=== PATIENT | male | born 1970 | race Caucasian/White ===

== ENCOUNTER 2018-06-30 12:56 | Emergency (ER) | payer MEDICAID ==
[~2018-06-30] VITALS: Ht 190.5 cm; Wt 90.9 kg
[2018-06-30 12:58] VITALS: BP 141/90; Ht 190.5 cm; Wt 90.9 kg
[2018-06-30] MEDS ORDERED: ZOLOFT100 MG PO (13:00)
[2018-06-30] MEDS ORDERED: VOLTAREN75 MG PO (14:20)
== END 2018-06-30 15:08 | disposition home or self-care (01) ==
LOC: D.ER 12:56
DX: M79.672 Pain in left foot (principal); M77.51 Other enthesopathy of right foot and ankle

== ENCOUNTER 2018-08-22 14:02 | Emergency (ER) | payer MEDICAID ==
[~2018-08-22] VITALS: Ht 190.5 cm; Wt 90.7 kg
[~2018-08-22 14:02] MED LIST: VOLTAREN75 MG PO; ZOLOFT100 MG PO
[2018-08-22 14:32] VITALS: Ht 190.5 cm; Wt 90.7 kg
[2018-08-22 15:01] VITALS: BP 134/83
== END 2018-08-22 15:06 | disposition home or self-care (01) ==
LOC: D.ER 14:02
DX: S01.01XD Laceration without foreign body of scalp, subsequent encounter (principal); X58.XXXD Exposure to other specified factors, subsequent encounter; Z48.02 Encounter for removal of sutures

== ENCOUNTER 2018-09-06 10:54 | Inpatient (IN) | payer MEDICAID ==
[~2018-09-06] VITALS: Ht 190.5 cm; Wt 92.7 kg
--- NOTE | 2018-09-06 11:32 | NUR ---
PT OBSERVED USING CHEWING TOBACCO AND STATES HE IS FEELING ANXIOUS. PT MADE TO SPIT OUT CHEWING TOBACCO, COMPLIED WITH REQUEST. EDUCATED PT THAT TOBACCO IS A STIMULANT, POSSIBLY CONTRIBUTING TO HIS ANXIETY. TOBACCO PRODUCT OUT OF REACH OF PT AT NURSES STATION FOR SAFE KEEPING.
[2018-09-06 11:54] LABS: BASOPHILS 0.4 % (0-2); EOSINOPHILS 0.2 % (0-7); HEMOGLOBIN 16.1 g/dL (13.5-17.5); LYMPHOCYTES 41.6 % (15-50); MCH 32.2 pg (26.0-34.0); MCHC 35.8 g/dL (31.0-37.0); MEAN PLATELET VOLUME 9.7 fL (7.4-10.4); MONOCYTES 5.4 % (2-11); NEUTROPHILS 52.4 % (40-80); PLATELET COUNT 216 10x3/uL (130-400); RDW 12.1 % (11.5-14.5); WBC 4.6 10x3/uL (4.8-10.8)
--- NOTE | 2018-09-06 11:55 | NUR ---
PT OBSERVED LYING IN BED. PT STILL COMPLAINING OF N/V FOLLOWING [facility]. TREATING PROVIDER NOTIFIED. RESP EVEN AND UNLABORED. AWAITING ARRIVAL OF ORDERED IV FLUIDS FROM PHARMACY. PT AWARE URINE SPEC NEEDED. URINAL PROVIDED. CALL LIGHT IN REACH. WILL CONT TO MONITOR.
[2018-09-06 12:11] LABS: ALKALINE PHOSPHATASE 77 U/L (46-116); ALT (SGPT) 78 U/L (10-68); BILIRUBIN - TOTAL 0.77 mg/dL (0.2-1.3); CALC OSMOLALITY 279 mosm/kg (275-300); CALCIUM 8.4 mg/dL (8.5-10.1); CARBON DIOXIDE 27.2 mmol/L (21.0-32.0); CHLORIDE - SERUM 101 mmol/L (98-107); CREATININE - SERUM 0.7 mg/dL (0.6-1.3); GLUCOSE 116 mg/dL (74-106); POTASSIUM - SERUM 3.9 mmol/L (3.5-5.1); PROTEIN - SERUM 7.6 g/dL (6.4-8.2); SODIUM 141 mmol/L (136-145); UREA NITROGEN 8 mg/dL (7-18); eGFR NON AFRICAN AMERICAN > 90 mL/min (90-120)
--- NOTE | 2018-09-06 12:28 | NUR ---
URINE SENT TO LAB COLLECTED VIA CLEAN CATCH. PT CURRENTLY LYING IN BED. NO SIGNS OF DISTRESS. CALL LIGHT IN REACH. PT ALERT AND ORIENTED TO PERSON AND PLACE. IV INFUSING ORDERED WITH NO SIGNS OF INFILTRATION. WILL CONT TO MONITOR. SIDE RAILS RAISED X 2 FOR SAFETY. LIGHTS DIMMED AND BLANKET PROVIDED FOR COMFORT.
[2018-09-06 12:45] LABS: APPEARANCE CLEAR (CLEAR); BILIRUBIN NEGATIVE (NEGATIVE); COLOR STRAW (YELLOW); GLUCOSE NEGATIVE (NEGATIVE); KETONE NEGATIVE (NEGATIVE); NITRITE NEGATIVE (NEGATIVE); PROTEIN NEGATIVE (NEGATIVE); SPECIFIC GRAVITY 1.005 (1.005-1.020); UROBILINOGEN NORMAL (NORMAL)
[2018-09-06 12:53] LABS: UDS - AMPHET NEGATIVE QUAL (NEGATIVE); UDS - BARB NEGATIVE QUAL (NEGATIVE); UDS - BENZO NEGATIVE QUAL (NEGATIVE); UDS - COCAINE NEGATIVE QUAL (NEGATIVE); UDS - OPIATE NEGATIVE QUAL (NEGATIVE); UDS - PCP NEGATIVE QUAL (NEGATIVE); UDS - THC NEGATIVE QUAL (NEGATIVE)
--- NOTE | 2018-09-06 13:24 | NUR ---
PT RESTING QUIETLY IN BED RECEIVING ORDERED IV FLUIDS. NO DISTRESS NOTED. CALL LIGHT IN REACH. SIDE RAILS RAISED X 2. PT ALERT AND ORIENTED. STATES N/V HAS IMPROVED. DENIES PAIN. WILL CONT TO MONITOR.
--- NOTE | 2018-09-06 13:49 | NUR ---
PT MOVED FROM ED ROOM T3 TO ROOM E10.
[2018-09-06 14:01] VITALS: BP 152/89
--- NOTE | 2018-09-06 14:57 | MORECARE ---
CASE MANAGEMENT DISCHARGE SUMMARY PATIENT: RUTH APARICIO UNIT: [id number] ADM DATE: AGE: 48 : 68 SEX: M ROOM/BED: AUTHOR: ROBERT COULTER PHYSICIAN: REFERRING PHYSICIAN: PATTI LÓPEZ MD DATE OF SERVICE: 09/06/18 Discharge Plan Patient Name: RUTH APARICIO Facility: [facility]:[place] : 1970 Planned Disposition: Anticipated Discharge Date: Discharge Date: Expected LOS: 0 Initial Reviewer: [email or web address] Initial Review Date: 09/06/2018 Generated: 09/06/18 3:57 pm Comments DCP- Discharge Planning Updated by [email or web address]: Ivonne Zurita on 09/06/18 1:[address] Contacted Transfer center @[phone], spoke with Octavia, for assistance with transfer to a Detox center. Faxed required information to #[phone]. Await CB. Ivonne Zurita RN CM Patient Name: RUTH APARICIO Page [id number] at 1457 All edits/amendments must be made on the electronic document DICTATION DATE: 09/06/181456 WIC SITE COORDINATOR: MARY LOU 09/06/181456 RPT#: [id number] DC DATE: STATUS: REG [facility] [address] [place] [address] END OF REPORT
--- NOTE | 2018-09-06 15:35 | NUR ---
PT OBSERVED LYING IN BED. RESP EVEN AND UNLABORED. PT CHEWING TOBACCO RETURNED AT THIS TIME. CALL LIGHT IN REACH. IV INFUSING ORDERED.
[2018-09-06 16:30] VITALS: BP 175/102
--- NOTE | 2018-09-06 16:45 | MORECARE ---
CASE MANAGEMENT DISCHARGE SUMMARY PATIENT: RUTH APARICIO UNIT: [id number] ADM DATE: AGE: 48 : 68 SEX: M ROOM/BED: AUTHOR: ROBERT COULTER PHYSICIAN: REFERRING PHYSICIAN: PATTI LÓPEZ MD DATE OF SERVICE: 09/06/18 Discharge Plan Patient Name: RUTH APARICIO Facility: [facility]:[place] : 1970 Planned Disposition: Anticipated Discharge Date: Discharge Date: Expected LOS: 0 Initial Reviewer: [email or web address] Initial Review Date: 09/06/2018 Generated: 09/06/18 5:44 pm Comments DCP- Discharge Planning Updated by [email or web address]: Ivonne Zurita on 09/06/18 3:[address] 1557-Contacted [facility] with the transfer center requested update. Per Octavia, [facility] is requesting screening paperwork, [facility] has no beds, awaiting CB from [facility]. Screening paperwork completed and faxed back to #[phone]. Await CB. Ivonne Zurita RN, CM DCP- Discharge Planning Updated by [email or web address]: Ivonne Zurita on 09/06/18 1:[address] Contacted Transfer center @[phone], spoke with Octavia, for assistance with transfer to a Detox center. Faxed required information to #[phone]. Await CB. Ivonne Zurita RN, CM Last DP export: 09/06/18 1:57 p Patient Name: RUTH APARICIO Page [id number] at 1645 All edits/amendments must be made on the electronic document DICTATION DATE: 09/06/181643 RAIL CAR UNLOADER: MARY LOU 09/06/181643 RPT#: [id number] DC DATE: STATUS: REG [facility] [address] [place] [address] END OF REPORT
--- NOTE | 2018-09-06 18:17 | MORECARE ---
CASE MANAGEMENT DISCHARGE SUMMARY PATIENT: RUTH APARICIO UNIT: [id number] ADM DATE: AGE: 48 : 68 SEX: M ROOM/BED: AUTHOR: ROBERT COULTER PHYSICIAN: REFERRING PHYSICIAN: PATTI LÓPEZ MD DATE OF SERVICE: 09/06/18 Discharge Plan Patient Name: RUTH APARICIO Facility: [facility]:[place] : 1970 Planned Disposition: Anticipated Discharge Date: Discharge Date: Expected LOS: 0 Initial Reviewer: [email or web address] Initial Review Date: 09/06/2018 Generated: 09/06/18 7:17 pm Comments DCP- Discharge Planning Updated by [email or web address]: Ivonne Zurita on 09/06/18 5:[address] Contacted Transfer center @[phone], spoke with Octavia, for assistance with transfer to a Detox center. Faxed required information to #[phone]. Await CB. Patient states he is homeless, no P.O. box, and lost his job. States his correct phone number is [phone]. Emergency contact: Mickey Aparicio #[phone]. Ivonne Zurita RN, CM DCP- Discharge Planning Updated by [email or web address]: Ivonne Zurita on 09/06/18 3:[address] 1558-Contacted Octavia with the transfer center requested update. Per Octavia, [facility] is requesting screening paperwork, [facility] has no beds, awaiting CB from [facility]. Screening paperwork completed and faxed back to #[phone]. Await CB. Ivonne Zurita RN, CM Last DP export: 09/06/18 3:45 p Patient Name: RUTH APARICIO Page [id number] at 1817 All edits/amendments must be made on the electronic document DICTATION DATE: 09/06/181815 DUTY ENGINEER: MARY LOU 09/06/181815 RPT#: [id number] DC DATE: STATUS: [facility] [address] [place] [address] END OF REPORT
--- NOTE | 2018-09-06 19:10 | NUR ---
HAND OFF REPORT GIVEN TO JERAD.
--- NOTE | 2018-09-06 20:37 | NUR ---
PT SITTING ON SIDE OF BED AND STARTING TO GET A LITTLE BIT ANXIOUS. SECURED IV SITE. INSTRUCTIONS GIVEN TO PT TO TAKE DEEP BREATHS AND TRY TO RELAX. PT VERBALZIED UNDERSTANDINGS. BED LOW LOCKED POSITION, SIDE RAILS UP TIMES TWO CALL LIGHT WITHIN REACH. WILL CONTINUE TO MONITOR FOR CHANGES.
--- NOTE | 2018-09-06 21:18 | NUR ---
PT SITTING BY SINK LETTING CELL PHONE CHARGE. LOBOS NEEDS AT THIS TIME. WILL CONTINUE TO MONITOR FOR CHANGES.
[2018-09-06 23:00] VITALS: BP 157/96
[2018-09-06 23:32] VITALS: BP 159/99; Ht 190.5 cm; Wt 92.7 kg
--- NOTE | 2018-09-06 23:40 | NUR ---
RECEIVED PT FROM ER, ATTACHED TO MONITORS. MONITORS ARE ALL WORKING CORRECTLY. INITIAL ASSESSMENT COMPLETED, SEE FLOWSHEET. PT DENIES NEEDS AT THIS TIME. WILL CONTINUE TO MONITOR CLOSELY.
[2018-09-07] VITALS (14 sets, daily range): BP systolic 104–172; BP diastolic 64–120
--- NOTE | 2018-09-07 01:17 | NUR ---
PT RESTING IN BED WITH EYES CLOSED. NO SIGNS OF ACUTE DISTRESS. VSS. WILL CONTINUE TO MONITOR.
--- NOTE | 2018-09-07 03:12 | NUR ---
PT RESTING IN BED WITH EYES CLOSED. NO SIGNS OF ACUTE DISTRESS. WILL CONTINUE TO MONITOR.
[2018-09-07 04:26] LABS: BASOPHILS 0.6 % (0-2); EOSINOPHILS 0.6 % (0-7); HEMOGLOBIN 13.2 g/dL (13.5-17.5); LYMPHOCYTES 45.2 % (15-50); MCH 31.3 pg (26.0-34.0); MCHC 34.7 g/dL (31.0-37.0); MEAN PLATELET VOLUME 9.5 fL (7.4-10.4); MONOCYTES 6.8 % (2-11); NEUTROPHILS 46.8 % (40-80); RBC 4.22 10x6/uL (4.20-6.10); RDW 11.9 % (11.5-14.5); WBC 5.3 10x3/uL (4.8-10.8)
[2018-09-07 04:29] LABS: PLATELET COUNT 166 10x3/uL (130-400)
[2018-09-07 04:38] LABS: ALBUMIN 3.4 g/dL (3.4-5.0); ALKALINE PHOSPHATASE 64 U/L (46-116); ALT (SGPT) 61 U/L (10-68); BILIRUBIN - TOTAL 1.42 mg/dL (0.2-1.3); CALCIUM 8.3 mg/dL (8.5-10.1); CARBON DIOXIDE 28.5 mmol/L (21.0-32.0); CHLORIDE - SERUM 100 mmol/L (98-107); CREATININE - SERUM 0.7 mg/dL (0.6-1.3); GLUCOSE 98 mg/dL (74-106); POTASSIUM - SERUM 3.9 mmol/L (3.5-5.1); PROTEIN - SERUM 6.4 g/dL (6.4-8.2); SODIUM 137 mmol/L (136-145); eGFR NON AFRICAN AMERICAN > 90 mL/min (90-120)
[2018-09-07 04:47] LABS: CALC OSMOLALITY 272 mosm/kg (275-300); UREA NITROGEN 11 mg/dL (7-18)
--- NOTE | 2018-09-07 05:12 | NUR ---
PT RESTING IN BED WITH EYES CLOSED. NO SIGNS OF ACUTE DISTRESS. WILL CONTINUE TO MONITOR.
--- NOTE | 2018-09-07 07:00 | NUR ---
AWAKE AND CONFUSED RE: TIME, CALM AND COOPERATIVE, DENIES PAIN, ASSESSMENT COMPLETE PER FLOWSHEET, VSS, CALL LIGHT IN REACH NO NEEDS AT THIS TIME
--- NOTE | 2018-09-07 07:45 | NUR ---
BREAKFAST TRAY TO BEDSIDE, INDEPENDENT WITH SET UP AND EATING
--- NOTE | 2018-09-07 10:30 | NUR ---
CALLED TO ROOM, PATIENT WOULD LIKE FOR PARENTS TO COME GET HIM AND TAKE HIM TO [place] AND HE WILL GET DETOX TREATMENT THERE, NOTIFIED DR ABEBE WHO IS HERE FOR EVAL OF WISHES, DR ABEBE TOLD PATIENT THAT HE NEEDS TO BE SURE THAT HE WILL RECIEVE TREATMENT AND THE FACILITY HAS ROOM BECAUSE HE NEEDS TO BE MEDIALLY MANAGED WITH NEEDED MEDICATIONS, ASKED HIM TO HAVE FATHER CALL UNIT, GIVEN PHONE # TO ICU
--- NOTE | 2018-09-07 11:05 | NUR ---
PC FROM DAD BENJAMIN APARICIO, STATES THE [facility] THAT IS AVAILABLE IN [place] IS [facility], NOT A FACILITY THAT CAN HELP PATIENT WITH DETOXING AND NO MEDS WOULD BE AVAILABLE, STATE THAT HE WOULD PREFER IF HIS SONE COULD STAY IN [place] AND GO TO THE [facility] AND BE TREATED, HE WILL CALL HIS SON BACK AND LET HIM KNOW THIS IS WHAT HE SHOULD DO., NO OTHER ACUTE CHANGE FROM PREVIOUS ASSESSMENT
--- NOTE | 2018-09-07 15:00 | NUR ---
RESTING WITH NO SIGN OF DISTRESS, VSS, DENIES PAIN, CALM AND COOPERATIVE, CALL LIGHT IN REACH, VOICES NO NEEDS AT THIS TIME
--- NOTE | 2018-09-07 16:39 | HP ---
PATIENT: RUTH TAM MEDICAL RECORD: [id number] ACCOUNT: [id number] LOCATION:[facility] D.2306 : [birth year] ADMISSION DATE: 09/06/18 PCP: No PCP HISTORY AND PHYSICAL EXAMINATION HISTORY OF PRESENT ILLNESS: Mr. Tam is a 48-year-old white male that presents to the Emergency Room earlier today with acute alcohol intoxication, has been drinking for 6 days and wants to quit. He was monitored here in the Emergency Room while trying to find a facility for acute detoxification that has been unable to be achieved and he is now having some shakiness and tremors. He appears anxious and may be showing early signs of withdrawal. He is going to be admitted this time and monitored due to his need for close monitoring, we will place in the ICU. His alcohol level on admission was 297. At last check 9:20 p.m., it was down to 46. His other lab showed normal potassium, normal BUN and creatinine. His glucose is 116. Drug screen was otherwise negative for other drugs. He does state that friend he was drinking with had a white powder which was a substance, which he may have ingested but again the rest of his drug screen is negative. PAST MEDICAL HISTORY: He has a history of alcohol abuse in the past. He has gone through treatment numerous times, last treatment was at [facility] back in the fall. He states that he did pretty well with the program. While there, he was started on some sertraline 150 mg a day. ALLERGIES: None known. HOME MEDICATIONS: Sertraline 150 mg a day and diclofenac or Naproxen. FAMILY HISTORY: Noncontributory. SOCIAL HISTORY: The patient has been living here in [place] for the last several months. He went through [facility] 3-4 months ago. 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 He does use smokeless tobacco. REVIEW OF SYSTEMS: At this time, he is complaining of some anxiousness and some trembling. He denies any nausea or vomiting at this time. He denies any significant pain. PHYSICAL EXAMINATION: GENERAL: He is a pleasant, he is in no distress and pretty articulate. EXTREMITIES: He does have some trembling of the upper and lower extremities. HEENT: Sclerae nonicteric. NECK: Soft and supple. HEART: Regular. LUNGS: Clear. ABDOMEN: Soft. IMPRESSION: Alcohol abuse with withdrawal. PLAN: 1. Observation. 2. Depression. PLAN: Admit, watch for signs of increasing withdrawal. Routine benzos with HISTORY AND PHYSICAL [id number] RUTH TAM. Restart sertraline. We will have socially responsible investment adviser see in the morning. TRANSINT:[id number] Voice Confirmation ID: [id number] DOCUMENT ID: [id number] HELENA ABEBE DO at 1639 CC: [id number] DICTATION DATE: 09/06/182258 PARTS DATA WRITER: 09/06/18 0519 ADM IN [place] [id number] [place] [address]
--- NOTE | 2018-09-07 17:33 | NUR ---
DC'D TO [facility] EXECUTIVE ADMIN, LINDA, WALKING TO VEHICLE,
--- NOTE | 2018-09-07 22:14 | MORECARE ---
CASE MANAGEMENT DISCHARGE SUMMARY PATIENT: RUTH APARICIO UNIT: [id number] ADM DATE: 09/06/18 AGE: 48 : 68 SEX: M ROOM/BED: D.2306 AUTHOR: ROBERT COULTER PHYSICIAN: REFERRING PHYSICIAN: HELENA ABEBE DO DATE OF SERVICE: 09/07/18 Discharge Plan Patient Name: RUTH APARICIO Facility: [facility]:[place] : 1970 Planned Disposition: Anticipated Discharge Date: Discharge Date: 09/07/2018 Expected LOS: 0 Initial Reviewer: [email or web address] Initial Review Date: 09/06/2018 Generated: 09/07/18 11:14 pm Comments DCP- Discharge Planning Updated by [email or web address]: Ivonne Zurita on 09/06/18 5:[address] Contacted Transfer center @[phone], spoke with Octavia, for assistance with transfer to a Detox center. Faxed required information to #[phone]. Await CB. Patient states he is homeless, no P.O. box, and lost his job. States his correct phone number is [phone]. Emergency contact: Mickey Parrapple #[phone]. Ivonne Zurita RN, CM DCP- Discharge Planning Updated by [email or web address]: Ivonne Zurita on 09/06/18 3:[address] 8709-Contacted Octavia with the transfer center requested update. Per Octavia, [facility] is requesting screening paperwork, [facility] has no beds, awaiting CB from [facility]. Screening paperwork completed and faxed back to #[phone]. Await CB. Ivonne Zurita RN, CM Last DP export: 09/06/18 5:17 p Patient Name: RUTH APARICIO Page [id number] at 7004 All edits/amendments must be made on the electronic document DICTATION DATE: 09/07/182213 FABRICATOR SPECIAL ITEMS: MARY LOU 09/07/182213 RPT#: [id number] DC DATE:09/07/18 STATUS: DIS IN [facility] [address] [place] [address] END OF REPORT
== END 2018-09-07 17:36 | disposition home or self-care (01) | DRG 897 ==
LOC: D.ER 10:54 → D.ICU 22:44
PROVIDERS: Family Medicine; ADMIT Family Medicine
DX: F10.229 Alcohol dependence with intoxication, unspecified (principal); F10.239 Alcohol dependence with withdrawal, unspecified; Y90.8 Blood alcohol level of 240 mg/100 ml or more; F10.221 Alcohol dependence with intoxication delirium; F32.9 Major depressive disorder, single episode, unspecified